=== PATIENT | female | born 1960 | race Caucasian/White ===

== ENCOUNTER 2016-09-20 14:47 | Emergency (ER) | payer MEDICARE ==
[2015-03-04 20:59] VITALS: BMI 29.5
[~2016-09-20 14:47] MED LIST: AMITIZA24 MCG PO; AMITRIPTYLINE100 MG PO; AMPYRA10 MG PO; AUBAGIO14 MG PO; BACLOFEN20 M1 PO; CLOBETASOL PROP60 GM SUBD; CYCLOBENZAPRINE10 MG PO; CYMBALTA60 MG PO; K-TAB10 MEQ PO; KLONOPIN1 MG PO; LAMICTAL200 MG PO; LATUDA80 MG PO; LIDODERM 5 %1 PATCH TRANSDERM; LIPITOR40 MG PO; METOLAZONE5 MG PO; MIRAPEX0.125 MG PO; NEURONTIN600 MG PO; PERCOCET 10/3251 TA1 PO; PRILOSEC20 MG PO; SUMATRIPTAN SUC25 MG; TIROSINT125 MCG PO
== END 2016-09-20 19:10 | disposition home or self-care (01) ==
LOC: D.ER 14:47
DX: S72.92XA Unspecified fracture of left femur, initial encounter for closed fracture (principal); X58.XXXA Exposure to other specified factors, initial encounter; Y93.89 Activity, other specified; Y92.89 Other specified places as the place of occurrence of the external cause; F41.9 Anxiety disorder, unspecified; F32.9 Major depressive disorder, single episode, unspecified; K21.9 Gastro-esophageal reflux disease without esophagitis; E03.9 Hypothyroidism, unspecified; G35 Multiple sclerosis

== ENCOUNTER 2016-10-22 14:58 | Emergency (ER) | payer MEDICARE ==
[2015-03-04 20:59] VITALS: BMI 29.5
== END 2016-10-22 22:20 | disposition home or self-care (01) ==
LOC: D.ER 14:58
DX: M25.552 Pain in left hip (principal); W19.XXXA Unspecified fall, initial encounter; Y93.89 Activity, other specified; Y92.012 Bathroom of single-family (private) house as the place of occurrence of the external cause; F41.9 Anxiety disorder, unspecified; F32.9 Major depressive disorder, single episode, unspecified; K21.9 Gastro-esophageal reflux disease without esophagitis; E03.9 Hypothyroidism, unspecified; G35 Multiple sclerosis; F17.200 Nicotine dependence, unspecified, uncomplicated

== ENCOUNTER → 2017-06-01 13:04 | Outpatient (CLI) | payer MEDICARE ==
[2015-03-04 20:59] VITALS: BMI 29.5
== END | disposition home or self-care (01) ==
LOC: D.MRI 13:00
DX: M54.5 Low back pain (principal)

== ENCOUNTER 2018-12-30 11:13 | Emergency (ER) | payer MEDICARE ==
[~2018-12-30] VITALS: Ht 170.2 cm; Wt 79.5 kg
[2018-12-30 11:21] VITALS: Ht 170.2 cm; Wt 79.5 kg
[2018-12-30 12:46] LABS: BASOPHILS 0.5 % (0-2); EOSINOPHILS 0.7 % (0-7); HEMATOCRIT 38.9 % (36.0-48.0); HEMOGLOBIN 12.5 g/dL (12-16); IMMATURE GRANULOCYTES 0.6 % (0-5); LYMPHOCYTES 15.5 % (15-50); MCH 29.6 pg (26.0-34.0); MCHC 32.1 g/dL (31.0-37.0); MEAN PLATELET VOLUME 10.1 fL (7.4-10.4); MONOCYTES 5.4 % (2-11); NEUTROPHILS 77.3 % (40-80); PLATELET COUNT 247 10x3/uL (130-400); RBC 4.23 10x6/uL (4.00-5.40); RDW 15.1 % (11.5-14.5)
[2018-12-30 13:01] LABS: ALBUMIN 3.7 g/dL (3.4-5.0); ANION GAP 19.4 mmol/L (8-16); BILIRUBIN - TOTAL 0.35 mg/dL (0.2-1.3); CALCIUM 9.5 mg/dL (8.5-10.1); CREATININE - SERUM 0.9 mg/dL (0.6-1.3); POTASSIUM - SERUM 4.4 mmol/L (3.5-5.1); PROTEIN - SERUM 7.3 g/dL (6.4-8.2)
--- NOTE | 2018-12-30 13:03 | NUR ---
DR. GUERRERO NOTIFIED AND 1:1 SITTER OBSERVATION ORDERED. SITTER AT BEDSIDE. NOTIFIED CHARGE NURSE AND ATTENDING IN REGARDS TO ASSESSMENT FINDINGS. RESOURCES GIVEN TO PT AND SAFETY PLAN INITIATED.
[2018-12-30 15:08] LABS: UDS - AMPHET NEGATIVE QUAL (NEGATIVE); UDS - BARB NEGATIVE QUAL (NEGATIVE); UDS - BENZO POSITIVE QUAL (NEGATIVE); UDS - COCAINE NEGATIVE QUAL (NEGATIVE); UDS - OPIATE NEGATIVE QUAL (NEGATIVE); UDS - PCP NEGATIVE QUAL (NEGATIVE); UDS - THC NEGATIVE QUAL (NEGATIVE)
[2018-12-30 15:14] LABS: APPEARANCE CLEAR (CLEAR); BILIRUBIN NEGATIVE (NEGATIVE); COLOR YELLOW (YELLOW); GLUCOSE NEGATIVE (NEGATIVE); KETONE NEGATIVE (NEGATIVE); NITRITE NEGATIVE (NEGATIVE); PROTEIN NEGATIVE (NEGATIVE); UROBILINOGEN NORMAL (NORMAL)
[2018-12-30 23:24] VITALS: BP 145/67
== END 2018-12-31 00:11 ==
LOC: D.ER 11:13
PROVIDERS: Emergency Medicine
DX: F23 Brief psychotic disorder (principal); R44.0 Auditory hallucinations; F20.9 Schizophrenia, unspecified

== ENCOUNTER 2020-12-06 20:25 | Emergency (ER) | payer MEDICARE ==
[~2020-12-06] VITALS: Ht 170.2 cm; Wt 90.7 kg
[~2020-12-06 20:25] MED LIST changes: -AMITRIPTYLINE100 MG PO; -AUBAGIO14 MG PO
[2020-12-06 20:47] VITALS: Ht 170.2 cm; Wt 90.7 kg
[2020-12-06] MEDS ORDERED: AUBAGIO14 MG PO (21:18)
[2020-12-06] MEDS ORDERED: AMITRIPTYLINE150 MG PO (21:19)
[2020-12-06] MEDS ORDERED: AMITRIPTYLINE100 MG PO (21:19)
[2020-12-06] MEDS ORDERED: ANORO ELLIPTA1 EACH INH (21:21)
[2020-12-06] MEDS ORDERED: AMPYRA10 MG PO (21:21)
[2020-12-06] MEDS ORDERED: BACLOFEN20 M1 PO (21:21)
[2020-12-06] MEDS ORDERED: NEURONTIN600 MG PO (21:22)
[2020-12-06] MEDS ORDERED: CYMBALTA60 MG PO (21:22)
[2020-12-06] MEDS ORDERED: HALDOL5 MG PO (21:26)
[2020-12-06] MEDS ORDERED: HYSINGLA ER20 MG PO (21:27)
[2020-12-06] MEDS ORDERED: LAMICTAL200 M1 PO (21:29)
[2020-12-06] MEDS ORDERED: PROTONIX40 MG PO (21:30)
[2020-12-06] MEDS ORDERED: LATUDA40 MG PO (21:30)
[2020-12-06] MEDS ORDERED: KLOR-CON M2020 MEQ PO (21:31)
[2020-12-06] MEDS ORDERED: FOLIC ACID1 MG PO (21:33)
[2020-12-06] MEDS ORDERED: MIRAPEX0.5 MG PO (21:34)
[2020-12-06] MEDS ORDERED: LEVO-T112 MCG PO (21:35)
[2020-12-06] MEDS ORDERED: PREDNISONE10 MG PO (21:35)
[2020-12-06 21:39] LABS: BASOPHILS 0.1 % (0-2); EOSINOPHILS 0 % (0-7); HEMATOCRIT 37.3 % (36.0-48.0); HEMOGLOBIN 11.8 g/dL (12-16); IMMATURE GRANULOCYTES 0.2 % (0-5); LYMPHOCYTE ABS# 2.11 10x3/uL (1.18-3.74); LYMPHOCYTES 23.6 % (15-50); MCH 28.6 pg (26.0-34.0); MCHC 31.6 g/dL (31.0-37.0); MCV 90.3 fL (80.0-100.0); MEAN PLATELET VOLUME 9.7 fL (7.4-10.4); MONOCYTES 8.5 % (2-11); NEUTROPHIL ABS# 6.05 10x3/uL (1.56-6.13); NEUTROPHILS 67.6 % (40-80); PLATELET COUNT 307 10x3/uL (130-400); RBC 4.13 10x6/uL (4.00-5.40); RDW 15.6 % (11.5-14.5)
[2020-12-06 21:45] LABS: ANION GAP 15.4 mmol/L (8-16); CALCIUM 9.2 mg/dL (8.5-10.1); CARBON DIOXIDE 24.7 mmol/L (21.0-32.0); POTASSIUM - SERUM 4.1 mmol/L (3.5-5.1)
[2020-12-06 21:58] LABS: ALBUMIN 3.4 g/dL (3.4-5.0); BILIRUBIN - TOTAL 0.45 mg/dL (0.2-1.3); MAGNESIUM - SERUM 2.1 mg/dL (1.8-2.4); PROTEIN - SERUM 7.2 g/dL (6.4-8.2); THYROID STIMULATING HORMONE 3.27 uIU/mL (0.36-3.74)
[2020-12-06 22:25] LABS: BILIRUBIN NEGATIVE (NEGATIVE); KETONE NEGATIVE (NEGATIVE); NITRITE NEGATIVE (NEGATIVE); UROBILINOGEN NORMAL mg/dL (< 2)
[2020-12-06 22:40] LABS: UDS - AMPHET NEGATIVE QUAL (NEGATIVE); UDS - BARB NEGATIVE QUAL (NEGATIVE); UDS - BENZO NEGATIVE QUAL (NEGATIVE); UDS - COCAINE NEGATIVE QUAL (NEGATIVE); UDS - OPIATE POSITIVE QUAL (NEGATIVE); UDS - PCP NEGATIVE QUAL (NEGATIVE); UDS - THC NEGATIVE QUAL (NEGATIVE)
[2020-12-06 22:44] LABS: SARS-CoV-2 ANTIGEN NEGATIVE- SARS-COV-2 (NEGATIVE)
[2020-12-07 08:23] VITALS: BP 127/67
== END 2020-12-07 08:27 ==
LOC: D.ER 20:25
PROVIDERS: Student in an Organized Health Care Education/Training Program
DX: F25.9 Schizoaffective disorder, unspecified (principal); G62.9 Polyneuropathy, unspecified; R41.82 Altered mental status, unspecified